=== PATIENT | male | born 1950 | race Caucasian/White ===

== ENCOUNTER → 2018-06-13 12:03 | Outpatient (CLI) | payer MEDICARE, OTHER, SELFPAY ==
--- NOTE | 2018-06-13 | DI.RAD.S_ITS ---
PROCEDURE: XR CHEST 2V INDICATIONS: COUGH, DISTANCE HISTORY OF PULMONARY NODULE, PT REPORTS NEVE TECHNIQUE: 2 views of the chest were acquired. COMPARISON: CR, CHEST 2VW, 11/08/2010, 13:56. CR, CHEST 2VW, 11/04/2010, 15:38. CR, CHEST 2VW, 10/30/2010, 9:33. FINDINGS: Surgical changes and devices: None. Lungs and pleura: No pleural effusions or pneumothorax. Lungs are clear. Mediastinum: Mediastinal contours are normal. Heart size is normal. Bones and chest wall: No suspicious bony abnormalities. Soft tissues appear unremarkable. IMPRESSION: No acute cardiopulmonary disease. Dictated by: Nico Olivas M.D. on 06/13/2018 at 12:37 Approved by: Nico Olivas M.D. on 06/13/2018 at 12:47
== END ==
PROVIDERS: PCP Family Medicine; Visit Provider Nurse Practitioner Family
DX: R05 Cough (principal)
CPT/HCPCS: 71046

== ENCOUNTER → 2018-06-29 07:04 | Outpatient (CLI) | payer MEDICARE, OTHER, SELFPAY ==
--- NOTE | 2018-06-29 | DI.US.S_ITS ---
PROCEDURE: US ABD AORTA ANEURYSM SCREEN INDICATIONS: HISTORY SMOKING TECHNIQUE: Real time scanning was performed of the aorta and iliac arteries, with image documentation. COMPARISON: None. FINDINGS: Aorta: Proximal aortic could not be seen due to bowel gas. Mid-aorta measures 2.0 cm. Distal aortic diameter is 2.0 cm. Iliac arteries: Right common iliac artery measures 1.5 cm. Left common iliac artery measures 1.4 cm. IMPRESSION: No aneurysm found. Proximal aorta could not be visualized due to bowel gas. Dictated by: Tee Jama M.D. on 06/29/2018 at 8:57 Approved by: Tee Jama M.D. on 06/29/2018 at 8:57
--- NOTE | 2018-06-29 | DI.US.S_ITS ---
PROCEDURE: US SCROTUM INDICATIONS: RIGHT SCROTAL FULLNESS AND PAIN TECHNIQUE: Real-time scanning was performed of the scrotum and testicles, with image documentation. Color and pulse Doppler interrogation was performed of both testicles. COMPARISON: None. FINDINGS: Right: Testicle is normal in size at 4.7 x 2.4 x 4.3 cm, and homogenous in echotexture. Epididymis is normal in overall size. There is a partially bilobed cystic structure seen measuring 2.7 x 4.5 x 3.5 cm, which is attributed to a prominent right epididymal head cyst. No hydrocele or varicoceles. Left: Testicle is normal in size at 5.7 x 3.1 x 4 cm, and homogeneous in echotexture. Epididymis is normal in overall size and morphology. No hydrocele or varicoceles. The scrotal wall is thickened on both sides. Doppler: Color and pulse Doppler demonstrate normal and symmetric arterial flow in both testicles. IMPRESSION: Prominent right epididymal head cyst. No intratesticular masses are seen. Thickened scrotal skin. Dictated by: Sanjeev Mckeon M.D. on 06/29/2018 at 8:16 Approved by: Sanjeev Mckeon M.D. on 06/29/2018 at 8:18
== END ==
PROVIDERS: PCP Family Medicine; Visit Provider Family Medicine
DX: Z13.6 Encounter for screening for cardiovascular disorders (principal); N50.82 Scrotal pain; N50.3 Cyst of epididymis; Z87.891 Personal history of nicotine dependence
CPT/HCPCS: 76706; 76870

== ENCOUNTER → 2018-11-28 14:35 | Outpatient (CLI) | payer MEDICARE, OTHER, SELFPAY ==
--- NOTE | 2018-11-28 | DI.RAD.S_ITS ---
PROCEDURE: XR LUMBAR SPINE 2-3V INDICATIONS: Radicular pain left lower extremity TECHNIQUE: 3 views of the lumbar spine were acquired. COMPARISON: None. FINDINGS: Bones: 5 [id number] vertebrae are present. There is grade 1 anterolisthesis of L4 on L5. Degenerative endplate changes and bilateral facet arthrosis at L4-5 and L5-S1 levels are seen. Mild degenerative endplate changes also seen throughout visualized lower thoracic and lumbar spine.. No vertebral body compression fractures. No suspicious bony lesions. Soft tissues: Overlying bowel gas pattern is normal. No suspicious soft tissue calcifications. IMPRESSION: Degenerative disc disease throughout lower thoracic and lumbar spine more prominent at L4-5 and L5-S1 levels. Grade 1 anterolisthesis of L4 on L5. Dictated by: Juan Veronica M.D. on 11/28/2018 at 15:31 Approved by: Juan Veronica M.D. on 11/28/2018 at 15:35
== END ==
PROVIDERS: Visit Provider Internal Medicine
DX: M51.16 Intervertebral disc disorders with radiculopathy, lumbar region (principal); M51.17 Intervertebral disc disorders with radiculopathy, lumbosacral region; M43.16 Spondylolisthesis, lumbar region
CPT/HCPCS: 72100

== ENCOUNTER → 2018-12-05 08:16 | Outpatient (CLI) | payer MEDICARE, OTHER, SELFPAY ==
--- NOTE | 2018-12-05 | DI.MRI.S_ITS ---
PROCEDURE: MR LUMBAR SPINE WO CON INDICATIONS: Radiculopathy, lumbar region TECHNIQUE: Noncontrast sagittal T1 spin echo and T2 fast echo, sagittal STIR, axial T1 and T2 fast spin echo through the lumbar spine. In cases with scoliosis, additional coronal T2 fast spin echo may be performed. COMPARISON: [facility], CR, XR LUMBAR SPINE 2-3V, 11/28/2018, 14:43. FINDINGS: Image quality: Excellent. Alignment and Curvature: There is grade 1 anterolisthesis of L4 on L5 and grade 1 retrolisthesis of L5 on S1. Bone Marrow: Marrow is of normal overall signal. No acute vertebral body compression fractures. Spinal Cord: Conus medullaris terminates at the L1 level. Visualized cord demonstrates normal signal and size. Paraspinous Soft Tissues: No paravertebral masses. L1-L2: Mild loss of disc height and disc desiccation. There is diffuse disc bulge and disc osteophyte complex. There is superimposed posterior central disc protrusion. Mild bilateral facet arthropathy and hypertrophy of ligamentum flavum. The central canal is severely narrowed. Mild left foraminal stenosis. No right foraminal stenosis. No definitive nerve root impingement. L2-L3: Mild loss of disc height and disc desiccation. There is diffuse disc bulge and disc osteophyte complex. Mild bilateral facet arthropathy and hypertrophy of ligamentum flavum. The central canal is moderately narrowed. Mild bilateral foraminal stenosis. No definitive nerve root impingement. L3-L4: Preserved disc height and disc signal. There is mild posterior lateral disc bulge. Mild bilateral facet arthropathy. The central canal is patent. No foraminal stenosis. No definitive nerve root impingement. L4-L5: Mild loss of disc height and disc desiccation. There is diffuse disc bulge and disc osteophyte complex. Severe bilateral facet arthropathy. The central canal is mildly narrowed. Moderate bilateral foraminal stenosis. No definitive nerve root impingement. L5-S1: Mild loss of disc height and disc desiccation. There is diffuse disc bulge. There is posterior central and left posterior and paramedian disc protrusion. Mild bilateral facet arthropathy. The central canal is mildly narrowed. There is severe narrowing of the left lateral recess and left S1 nerve root impingement. Severe left and moderate right subarticular foraminal stenosis. IMPRESSION: 1. Multilevel degenerative disc disease and facet arthropathy as described. 2. Central canal stenosis, severe at L1-L2, moderate at L2-L3 and mild at L4-L5 and L5-S1. 3. Severe narrowing of the left lateral recess secondary to protruding disc at L5-S1 which impinges the left S1 nerve root. 4. Multilevel foraminal stenosis as described. Dictated by: Nico Olivas M.D. on 12/05/2018 at 10:07 Approved by: Nico Olivas M.D. on 12/05/2018 at 11:42
== END ==
PROVIDERS: Visit Provider Student in an Organized Health Care Education/Training Program
DX: M51.16 Intervertebral disc disorders with radiculopathy, lumbar region (principal); M51.17 Intervertebral disc disorders with radiculopathy, lumbosacral region; M47.26 Other spondylosis with radiculopathy, lumbar region; M47.27 Other spondylosis with radiculopathy, lumbosacral region; M48.061 Spinal stenosis, lumbar region without neurogenic claudication; M48.07 Spinal stenosis, lumbosacral region
CPT/HCPCS: 72148